=== PATIENT | female | born 1970 | race African-American/Black ===

== ENCOUNTER 2017-04-04 22:55 | Inpatient (IN) | payer OTHER ==
[2017-04-05] MEDS: ONDANSETRON 4 MG INJ IV ×4 (00:14→08:26)
[2017-04-05] MEDS: DEXAMETHASONE 10 MG/ML 1 ML INJ IV (00:14)
[2017-04-05] MEDS: KETOROLAC 15 MG INJ IV (00:14)
[2017-04-05] MEDS: HYDROmorphONE 1 MG/ML SYG IV ×4 (00:15→22:42)
[2017-04-05] MEDS: SOD CHLORIDE 0.9% 500 ML IV (00:15)
[2017-04-05] MEDS: DIAZEPAM 5 MG/ML SYG IV (00:15)
[2017-04-05 01:09] LABS: ADD MAN DIFF? NO
[2017-04-05 01:12] LABS: BASOPHIL # 0.1 10^3/ul (0.0-0.1); BASOPHILS % 1.1 % (0.0-2.0); EOSINOPHILS # 0.1 10^3/ul (0.0-0.5); EOSINOPHILS % 1.8 % (0.0-7.0); HEMATOCRIT 39.8 % (37.0-47.0); HEMOGLOBIN 12.9 g/dl (12.0-16.0); LYMPHOCYTES # 2.6 10^3/ul (0.8-2.9); MEAN CORPUSCULAR HGB CONC 32.4 g/dl (32.0-37.0); MEAN CORPUSCULAR VOLUME 86.3 fl (82.0-101.0); MEAN PLATELET VOLUME 11.1 fl (7.4-10.4); MONOCYTE # 0.5 10^3/ul (0.3-0.9); MONOCYTES % 8.5 % (0.0-11.0); NEUTROPHIL # 2.4 10^3/ul (1.6-7.5); NEUTROPHILS % 42.4 % (39.0-77.0); PLATELET COUNT 316 10^3/UL (140-415); RED BLOOD COUNT 4.61 10^6/ul (4.20-5.40); RED CELL DISTRIBUTION WIDTH 12.1 % (11.5-14.5)
[2017-04-05 01:12] LABS: WHITE BLOOD COUNT 5.6 10^3/ul (4.8-10.8)
[2017-04-05 01:19] LABS: ANION GAP 13 (8-16); BLOOD UREA NITROGEN 13 mg/dl (7-20); CALCIUM 9.7 mg/dl (8.4-10.2); CARBON DIOXIDE 27 mmol/L (21-31); CHLORIDE 104 mmol/L (97-110); CREATININE 0.68 mg/dl (0.44-1.00); GLUCOSE 102 mg/dl (70-220); SODIUM 140 mmol/L (135-144)
[2017-04-05] MEDS ORDERED: ACETAMINOPHEN 325 MG TAB PO ×2 (01:30→02:30)
[2017-04-05] MEDS ORDERED: HYDROCODONE/APAP (5/325) TAB PO (02:30)
[2017-04-05] MEDS ORDERED: DOCUSATE SODIUM 100 MG CAP PO (02:30)
[2017-04-05] MEDS ORDERED: BISACODYL (EC) 5 MG TAB PO (02:30)
[2017-04-05] MEDS ORDERED: HYDROmorphONE 0.5 MG/0.5 ML SYG IV (02:30)
[2017-04-05] MEDS ORDERED: NACL 0.9% 3 ML SYG IV (02:30)
[2017-04-05 05:51] LABS: INR 0.88; PT RATIO 0.9
[2017-04-05 05:52] LABS: PARTIAL THROMBOPLASTIN TIME 27.5 Sec (25.0-35.0)
[2017-04-05] MEDS: DEXAMETHASONE 4 MG/ML 1 ML INJ IV ×3 (09:50→18:23)
[2017-04-05] MEDS: METOCLOPRAMIDE 10 MG INJ IV (13:14)
[2017-04-05] MEDS: SOD CHLORIDE 0.9% 1,000 ML IV (13:59)
[2017-04-05] MEDS: KETOROLAC 30 MG INJ IV (19:51)
[2017-04-06] MEDS: DEXAMETHASONE 4 MG/ML 1 ML INJ IV ×4 (00:10→18:33)
[2017-04-06] MEDS: ONDANSETRON 4 MG INJ IV (00:37)
[2017-04-06] MEDS: DIPHENHYDRAMINE 50 MG CAP PO ×3 (00:47→13:36)
[2017-04-06] MEDS: PANTOPRAZOLE (EC) 40 MG TAB PO (05:40)
[2017-04-06 06:10] LABS: ADD MAN DIFF? NO
[2017-04-06 06:12] LABS: HEMATOCRIT 36.8 % (37.0-47.0); HEMOGLOBIN 11.8 g/dl (12.0-16.0); LYMPHOCYTES # 0.9 10^3/ul (0.8-2.9); LYMPHOCYTES % 10.3 % (15.0-51.0); MEAN CORPUSCULAR HEMOGLOBIN 28.1 pg (29.0-33.0); MEAN CORPUSCULAR HGB CONC 32.1 g/dl (32.0-37.0); MEAN CORPUSCULAR VOLUME 87.6 fl (82.0-101.0); MEAN PLATELET VOLUME 11.1 fl (7.4-10.4); MONOCYTE # 0.3 10^3/ul (0.3-0.9); MONOCYTES % 3.3 % (0.0-11.0); NEUTROPHIL # 7.2 10^3/ul (1.6-7.5); NEUTROPHILS % 85.9 % (39.0-77.0); PLATELET COUNT 292 10^3/UL (140-415); RED CELL DISTRIBUTION WIDTH 12.4 % (11.5-14.5)
[2017-04-06 06:12] LABS: WHITE BLOOD COUNT 8.4 10^3/ul (4.8-10.8)
[2017-04-06 06:48] LABS: ALANINE AMINOTRANSFERASE 48 IU/L (13-69); ALKALINE PHOSPHATASE 130 IU/L (42-121); ANION GAP 14 (8-16); ASPARTATE AMINO TRANSFERASE 25 IU/L (15-46); BILIRUBIN,INDIRECT 0.1 mg/dl (0-1.1); BILIRUBIN,TOTAL 0.1 mg/dl (0.2-1.3); BLOOD UREA NITROGEN 17 mg/dl (7-20); CALCIUM 9.8 mg/dl (8.4-10.2); CARBON DIOXIDE 28 mmol/L (21-31); CHLORIDE 104 mmol/L (97-110); GLUCOSE 130 mg/dl (70-220); POTASSIUM 4.6 mmol/L (3.5-5.1); SODIUM 141 mmol/L (135-144)
[2017-04-06 06:49] LABS: MAGNESIUM 1.9 mg/dl (1.7-2.5)
[2017-04-06 06:49] LABS: PHOSPHORUS 3.8 mg/dl (2.5-4.9)
[2017-04-06] MEDS: SERTRALINE 50 MG TAB PO (08:54)
[2017-04-06] MEDS: DOCUSATE SODIUM 250 MG CAP PO (08:54)
[2017-04-06] MEDS: HYDROmorphONE 1 MG/ML SYG IV (12:19)
[2017-04-06] MEDS: traMADol 50 MG TAB PO ×2 (15:18→20:50)
[2017-04-06] MEDS: ACETAMINOPHEN 1000MG/100ML IV 100 ML IVPB ×2 (15:19→20:49)
[2017-04-06] MEDS: HYDROmorphONE 2 MG TAB PO (22:09)
[2017-04-07] MEDS: DEXAMETHASONE 4 MG/ML 1 ML INJ IV ×5 (00:10→23:03)
[2017-04-07] MEDS: HYDROmorphONE 1 MG/ML SYG IV ×3 (01:15→20:35)
[2017-04-07] MEDS: ACETAMINOPHEN 1000MG/100ML IV 100 ML IVPB ×4 (02:13→19:41)
[2017-04-07] MEDS: traMADol 50 MG TAB PO ×4 (02:14→19:41)
[2017-04-07 05:23] LABS: WHITE BLOOD COUNT 9.9 10^3/ul (4.8-10.8)
[2017-04-07 05:23] LABS: ADD MAN DIFF? NO; BASOPHILS % 0.1 % (0.0-2.0); HEMATOCRIT 38.7 % (37.0-47.0); HEMOGLOBIN 12.2 g/dl (12.0-16.0); LYMPHOCYTES % 10.2 % (15.0-51.0); MEAN CORPUSCULAR HEMOGLOBIN 27.5 pg (29.0-33.0); MEAN CORPUSCULAR HGB CONC 31.5 g/dl (32.0-37.0); MEAN CORPUSCULAR VOLUME 87.2 fl (82.0-101.0); MEAN PLATELET VOLUME 11.1 fl (7.4-10.4); MONOCYTE # 0.3 10^3/ul (0.3-0.9); MONOCYTES % 2.6 % (0.0-11.0); NEUTROPHIL # 8.6 10^3/ul (1.6-7.5); NEUTROPHILS % 86.5 % (39.0-77.0); PLATELET COUNT 305 10^3/UL (140-415); RED BLOOD COUNT 4.44 10^6/ul (4.20-5.40)
[2017-04-07 05:48] LABS: ANION GAP 16 (8-16); BLOOD UREA NITROGEN 16 mg/dl (7-20); CALCIUM 9.1 mg/dl (8.4-10.2); CARBON DIOXIDE 29 mmol/L (21-31); CHLORIDE 102 mmol/L (97-110); CREATININE 0.66 mg/dl (0.44-1.00); GLUCOSE 128 mg/dl (70-220); POTASSIUM 4.5 mmol/L (3.5-5.1); SODIUM 142 mmol/L (135-144)
[2017-04-07] MEDS: PANTOPRAZOLE (EC) 40 MG TAB PO (05:58)
[2017-04-07] MEDS: SERTRALINE 50 MG TAB PO (08:28)
[2017-04-07] MEDS: DOCUSATE SODIUM 250 MG CAP PO (08:30)
[2017-04-07] MEDS: DIPHENHYDRAMINE 50 MG CAP PO (19:05)
[2017-04-07] MEDS: HYDROCORTISONE 2.5% 28.35 GM OINT TOP (20:48)
[2017-04-08] MEDS: ACETAMINOPHEN 1000MG/100ML IV 100 ML IVPB ×4 (02:38→22:00)
[2017-04-08] MEDS: DIPHENHYDRAMINE 50 MG CAP PO ×2 (02:39→08:51)
[2017-04-08] MEDS: traMADol 50 MG TAB PO ×4 (02:39→22:01)
[2017-04-08] MEDS: HYDROmorphONE 1 MG/ML SYG IV ×3 (04:30→19:48)
[2017-04-08] MEDS: PANTOPRAZOLE (EC) 40 MG TAB PO (05:09)
[2017-04-08] MEDS: DEXAMETHASONE 4 MG/ML 1 ML INJ IV ×4 (05:09→23:57)
[2017-04-08 05:17] LABS: ADD MAN DIFF? NO
[2017-04-08 05:19] LABS: WHITE BLOOD COUNT 10.3 10^3/ul (4.8-10.8)
[2017-04-08 05:19] LABS: BASOPHILS % 0.1 % (0.0-2.0); HEMATOCRIT 36.1 % (37.0-47.0); HEMOGLOBIN 11.7 g/dl (12.0-16.0); LYMPHOCYTES # 3.3 10^3/ul (0.8-2.9); LYMPHOCYTES % 31.5 % (15.0-51.0); MEAN CORPUSCULAR HEMOGLOBIN 28.6 pg (29.0-33.0); MEAN CORPUSCULAR HGB CONC 32.4 g/dl (32.0-37.0); MEAN CORPUSCULAR VOLUME 88.3 fl (82.0-101.0); MEAN PLATELET VOLUME 10.9 fl (7.4-10.4); MONOCYTE # 0.9 10^3/ul (0.3-0.9); MONOCYTES % 8.9 % (0.0-11.0); NEUTROPHIL # 6.1 10^3/ul (1.6-7.5); NEUTROPHILS % 58.7 % (39.0-77.0); PLATELET COUNT 282 10^3/UL (140-415); RED BLOOD COUNT 4.09 10^6/ul (4.20-5.40); RED CELL DISTRIBUTION WIDTH 12.1 % (11.5-14.5)
[2017-04-08 05:54] LABS: ANION GAP 11 (8-16); BLOOD UREA NITROGEN 18 mg/dl (7-20); CALCIUM 8.6 mg/dl (8.4-10.2); CARBON DIOXIDE 30 mmol/L (21-31); CHLORIDE 102 mmol/L (97-110); CREATININE 0.71 mg/dl (0.44-1.00); GLUCOSE 91 mg/dl (70-220); POTASSIUM 3.9 mmol/L (3.5-5.1); SODIUM 139 mmol/L (135-144)
[2017-04-08] MEDS: SERTRALINE 50 MG TAB PO (08:45)
[2017-04-08] MEDS: HYDROCORTISONE 2.5% 28.35 GM OINT TOP ×2 (08:46→22:01)
[2017-04-08] MEDS: DOCUSATE SODIUM 250 MG CAP PO (08:53)
[2017-04-08] MEDS: DIPHENHYDRAMINE 50 MG INJ IV (14:03)
[2017-04-09] MEDS: HYDROmorphONE 1 MG/ML SYG IV ×2 (02:52→14:45)
[2017-04-09] MEDS: traMADol 50 MG TAB PO ×3 (02:53→14:44)
[2017-04-09] MEDS: ACETAMINOPHEN 1000MG/100ML IV 100 ML IVPB ×3 (02:53→14:44)
[2017-04-09] MEDS: PANTOPRAZOLE (EC) 40 MG TAB PO (05:32)
[2017-04-09] MEDS: DEXAMETHASONE 4 MG/ML 1 ML INJ IV ×3 (05:33→18:00)
[2017-04-09 05:40] LABS: ADD MAN DIFF? NO
[2017-04-09 05:42] LABS: BASOPHILS % 0.1 % (0.0-2.0); EOSINOPHILS % 0.4 % (0.0-7.0); LYMPHOCYTES # 3.7 10^3/ul (0.8-2.9); LYMPHOCYTES % 46.8 % (15.0-51.0); MEAN CORPUSCULAR HGB CONC 32.4 g/dl (32.0-37.0); MEAN CORPUSCULAR VOLUME 86.4 fl (82.0-101.0); MEAN PLATELET VOLUME 10.8 fl (7.4-10.4); MONOCYTE # 0.6 10^3/ul (0.3-0.9); MONOCYTES % 7.1 % (0.0-11.0); NEUTROPHIL # 3.6 10^3/ul (1.6-7.5); NEUTROPHILS % 45.2 % (39.0-77.0); PLATELET COUNT 255 10^3/UL (140-415); RED BLOOD COUNT 4.28 10^6/ul (4.20-5.40); RED CELL DISTRIBUTION WIDTH 12.2 % (11.5-14.5)
[2017-04-09 06:19] LABS: ANION GAP 13 (8-16); BLOOD UREA NITROGEN 18 mg/dl (7-20); CALCIUM 8.6 mg/dl (8.4-10.2); CARBON DIOXIDE 30 mmol/L (21-31); CHLORIDE 101 mmol/L (97-110); CREATININE 0.68 mg/dl (0.44-1.00); GLUCOSE 80 mg/dl (70-220); POTASSIUM 3.7 mmol/L (3.5-5.1); SODIUM 140 mmol/L (135-144)
[2017-04-09] MEDS: DOCUSATE SODIUM 250 MG CAP PO ×2 (09:00→09:22)
[2017-04-09] MEDS: HYDROCORTISONE 2.5% 28.35 GM OINT TOP (09:22)
[2017-04-09] MEDS: SERTRALINE 50 MG TAB PO (09:22)
[2017-04-09] MEDS: METHOCARBAMOL 500 MG TAB PO (16:07)
== END 2017-04-09 19:30 | disposition home or self-care (01) | DRG 552 ==
LOC: E/R 22:55 → MS1 04-05 01:15
DX: M51.16 Intervertebral disc disorders with radiculopathy, lumbar region (principal); Z68.41 Body mass index [BMI] 40.0-44.9, adult; F31.9 Bipolar disorder, unspecified; G89.4 Chronic pain syndrome; E66.9 Obesity, unspecified
CPT/HCPCS: 72158; 80048; 80053; 83735; 84100; 85025; 85610; 85730; 96374; 96375; 96376; 97162; 99285-25

== ENCOUNTER 2017-04-25 23:03 | Emergency (ER) | payer SELFPAY, OTHER | END 2017-04-26 02:51 | disposition left against medical advice (07) | LOC: FTE 23:03 → E/R 04-26 02:51 | DX: Z53.21 Procedure and treatment not carried out due to patient leaving prior to being seen by health care provider (principal) ==

== ENCOUNTER 2017-05-23 17:41 | Emergency (ER) | payer OTHER ==
[2017-05-23] MEDS: METHYLPREDNISOLONE 125 MG INJ IV (21:17)
[2017-05-23] MEDS: KETOROLAC 30 MG INJ IV (21:17)
[2017-05-23] MEDS: FAMOTIDINE 20 MG INJ IV (21:18)
[2017-05-23] MEDS: LACTATED RINGER'S 500 ML IV (21:18)
[2017-05-23] MEDS: LORAZEPAM 2 MG INJ IV (21:18)
[2017-05-23 21:29] LABS: URINE BLOOD (Dip) POC Trace-intact (NEGATIVE); URINE GLUCOSE (Dip) POC Negative (NEGATIVE); URINE KETONES (Dip) POC Negative (NEGATIVE); URINE LEUKOCYTE EST (Dip) POC Negative (NEGATIVE); URINE NITRITE (Dip) POC Negative (NEGATIVE); URINE TOTAL PROTEIN POC Negative (NEGATIVE)
[2017-05-23] MEDS: ONDANSETRON 4 MG INJ IV (21:47)
[2017-05-23] MEDS: HYDROmorphONE 1 MG/ML SYG IM (21:49)
[2017-05-23 21:52] LABS: ADD MAN DIFF? NO
[2017-05-23 21:55] LABS: BASOPHILS % 0.7 % (0.0-2.0); EOSINOPHILS # 0.1 10^3/ul (0.0-0.5); EOSINOPHILS % 2.9 % (0.0-7.0); HEMATOCRIT 40.2 % (37.0-47.0); HEMOGLOBIN 12.9 g/dl (12.0-16.0); LYMPHOCYTES # 1.6 10^3/ul (0.8-2.9); LYMPHOCYTES % 38.4 % (15.0-51.0); MEAN CORPUSCULAR HEMOGLOBIN 28.1 pg (29.0-33.0); MEAN CORPUSCULAR HGB CONC 32.1 g/dl (32.0-37.0); MEAN CORPUSCULAR VOLUME 87.6 fl (82.0-101.0); MONOCYTE # 0.5 10^3/ul (0.3-0.9); MONOCYTES % 11.8 % (0.0-11.0); NEUTROPHIL # 1.9 10^3/ul (1.6-7.5); PLATELET COUNT 261 10^3/UL (140-415); RED BLOOD COUNT 4.59 10^6/ul (4.20-5.40); RED CELL DISTRIBUTION WIDTH 12.4 % (11.5-14.5)
[2017-05-23 21:55] LABS: WHITE BLOOD COUNT 4.1 10^3/ul (4.8-10.8)
[2017-05-23 22:21] LABS: ALANINE AMINOTRANSFERASE 100 IU/L (13-69); ALBUMIN 4.3 g/dl (3.3-4.9); ALBUMIN/GLOBULIN RATIO 1.13; ALKALINE PHOSPHATASE 161 IU/L (42-121); ANION GAP 15 (8-16); ASPARTATE AMINO TRANSFERASE 77 IU/L (15-46); BILIRUBIN,INDIRECT 0.1 mg/dl (0-1.1); BILIRUBIN,TOTAL 0.1 mg/dl (0.2-1.3); BLOOD UREA NITROGEN 13 mg/dl (7-20); CALCIUM 9.5 mg/dl (8.4-10.2); CARBON DIOXIDE 29 mmol/L (21-31); CHLORIDE 105 mmol/L (97-110); CREATININE 0.66 mg/dl (0.44-1.00); GLUCOSE 89 mg/dl (70-220); LIPASE 103 U/L (23-300); POTASSIUM 4.1 mmol/L (3.5-5.1); SODIUM 145 mmol/L (135-144); TOTAL PROTEIN 8.1 g/dl (6.1-8.1)
[2017-05-23] MEDS: DIPHENHYDRAMINE 50 MG INJ IV (22:32)
[2017-05-24] MEDS: OXYCODONE/ACETAMINOPHEN (5/325) TAB PO (00:07)
[2017-05-24] MEDS: traMADol 50 MG TAB PO (00:07)
== END 2017-05-24 00:20 | disposition home or self-care (01) ==
LOC: FTE 05-24 00:20
DX: M54.16 Radiculopathy, lumbar region (principal)
CPT/HCPCS: 36415; 72131; 80053; 81003; 83690; 85025; 87086; 96372; 96374; 96375; 99285-25

== ENCOUNTER 2017-06-26 14:45 | Inpatient (IN) | payer OTHER ==
[2017-06-26 16:16] LABS: ADD MAN DIFF? NO
[2017-06-26 16:21] LABS: WHITE BLOOD COUNT 5.7 10^3/ul (4.8-10.8)
[2017-06-26 16:21] LABS: BASOPHIL # 0.1 10^3/ul (0.0-0.1); BASOPHILS % 0.9 % (0.0-2.0); EOSINOPHILS # 0.2 10^3/ul (0.0-0.5); EOSINOPHILS % 4.2 % (0.0-7.0); HEMATOCRIT 35.5 % (37.0-47.0); HEMOGLOBIN 11.9 g/dl (12.0-16.0); LYMPHOCYTES # 1.2 10^3/ul (0.8-2.9); LYMPHOCYTES % 21.4 % (15.0-51.0); MEAN CORPUSCULAR HEMOGLOBIN 28.3 pg (29.0-33.0); MEAN CORPUSCULAR HGB CONC 33.5 g/dl (32.0-37.0); MEAN CORPUSCULAR VOLUME 84.3 fl (82.0-101.0); MONOCYTE # 0.6 10^3/ul (0.3-0.9); MONOCYTES % 10.1 % (0.0-11.0); NEUTROPHIL # 3.6 10^3/ul (1.6-7.5); NEUTROPHILS % 63.2 % (39.0-77.0); PLATELET COUNT 283 10^3/UL (140-415); RED BLOOD COUNT 4.21 10^6/ul (4.20-5.40); RED CELL DISTRIBUTION WIDTH 11.9 % (11.5-14.5)
[2017-06-26] MEDS: CEFEPIME 2GM/50 ML (PMX) 50 ML IVPB (16:25)
[2017-06-26] MEDS: SODIUM CHLORIDE 0.9% 1L BAG IV* (16:28)
[2017-06-26 16:29] LABS: ADD UMIC YES; UR ASCORBIC ACID NEGATIVE (NEGATIVE); UR BILIRUBIN (Dip) NEGATIVE (NEGATIVE); UR BLOOD (Dip) NEGATIVE (NEGATIVE); UR CLARITY CLOUDY (CLEAR); UR COLOR AMBER (YELLOW); UR GLUCOSE (Dip) NEGATIVE (NEGATIVE); UR KETONES (Dip) TRACE mg/dL (NEGATIVE); UR LEUKOCYTE ESTERASE (Dip) NEGATIVE Leu/ul (NEGATIVE); UR MUCUS MANY /HPF (NONE SEEN); UR NITRITE (Dip) NEGATIVE (NEGATIVE); UR RBC 5 /HPF (0-5); UR SPECIFIC GRAVITY (Dip) 1.024 (1.003-1.030); UR SQUAMOUS EPITHELIAL CELL MODERATE /HPF (FEW); UR TOTAL PROTEIN (Dip) 1+ mg/dl (NEGATIVE); UR UROBILINOGEN (Dip) NEGATIVE (NEGATIVE); UR WBC 8 /HPF (0-5)
[2017-06-26] MEDS ORDERED: ONDANSETRON 4 MG INJ (16:35)
[2017-06-26 16:40] LABS: ALANINE AMINOTRANSFERASE 22 IU/L (13-69); ALKALINE PHOSPHATASE 86 IU/L (42-121); ANION GAP 18 (8-16); ASPARTATE AMINO TRANSFERASE 30 IU/L (15-46); BILIRUBIN,INDIRECT 0.8 mg/dl (0-1.1); BILIRUBIN,TOTAL 0.8 mg/dl (0.2-1.3); BLOOD UREA NITROGEN 9 mg/dl (7-20); CALCIUM 9.6 mg/dl (8.4-10.2); CARBON DIOXIDE 26 mmol/L (21-31); CHLORIDE 98 mmol/L (97-110); CREATININE 0.69 mg/dl (0.44-1.00); GLUCOSE 111 mg/dl (70-220); POTASSIUM 4.1 mmol/L (3.5-5.1); SODIUM 138 mmol/L (135-144)
[2017-06-26 16:41] LABS: INR 0.99; PARTIAL THROMBOPLASTIN TIME 29.2 Sec (25.0-35.0); PROTIME 13.2 Sec (11.9-14.9)
[2017-06-26] MEDS: ONDANSETRON 4 MG INJ IV (16:52)
[2017-06-26 16:53] LABS: TROPONIN-I < 0.012 ng/ml (0.00-0.12)
[2017-06-26] MEDS: VANCOMYCIN 1 GM (PMX) 250 ML IVPB (17:01)
[2017-06-26 17:25] LABS: ERYTHROCYTE SEDIMENTATION RATE 38 mm/Hr (0-20)
[2017-06-26 18:42] LABS: LACTIC ACID 1.4 mmol/L (0.5-2.0)
[2017-06-26] MEDS: KETOROLAC 15 MG INJ IV (20:14)
[2017-06-26] MEDS ORDERED: BISACODYL 10 MG SUPP PR (20:30)
[2017-06-26] MEDS ORDERED: NACL 0.9% 3 ML SYG IV (20:30)
[2017-06-26] MEDS ORDERED: ACETAMINOPHEN 325 MG TAB PO (20:30)
[2017-06-26] MEDS ORDERED: ONDANSETRON 4 MG INJ IV (20:30)
[2017-06-26] MEDS ORDERED: DOCUSATE SODIUM 100 MG CAP PO (20:30)
[2017-06-26] MEDS: SOD CHLORIDE 0.9% 1,000 ML IV (22:28)
[2017-06-26] MEDS: morphine 2 MG INJ IV (22:35)
[2017-06-26 22:50] LABS: URIC ACID 5.9 mg/dl (3.1-7.9)
[2017-06-26 22:51] LABS: LACTIC ACID 0.8 mmol/L (0.5-2.0)
[2017-06-26 22:55] LABS: RHEUMATOID FACTOR NEGATIVE (NEGATIVE)
[2017-06-27] MEDS: ACETAMINOPHEN 325 MG TAB PO ×2 (02:28→14:21)
[2017-06-27] MEDS: FLUTICASONE 0.05% 16 GM NAS SPRAY NASAL ×3 (02:29→20:46)
[2017-06-27] MEDS: morphine 2 MG INJ IV ×3 (03:27→22:11)
[2017-06-27] MEDS ORDERED: VANCOMYCIN IV PER PHARMACY XX (04:30)
[2017-06-27] MEDS: LEVOFLOXACIN 750MG/D5W (PMX) 150 ML IVPB (05:11)
[2017-06-27 06:17] LABS: ADD MAN DIFF? NO
[2017-06-27 06:23] LABS: WHITE BLOOD COUNT 2.9 10^3/ul (4.8-10.8)
[2017-06-27 06:23] LABS: EOSINOPHILS # 0.2 10^3/ul (0.0-0.5); EOSINOPHILS % 6.5 % (0.0-7.0); HEMATOCRIT 30.6 % (37.0-47.0); LYMPHOCYTES % 33.2 % (15.0-51.0); MEAN CORPUSCULAR HEMOGLOBIN 27.9 pg (29.0-33.0); MEAN CORPUSCULAR HGB CONC 32.7 g/dl (32.0-37.0); MEAN CORPUSCULAR VOLUME 85.2 fl (82.0-101.0); MEAN PLATELET VOLUME 10.7 fl (7.4-10.4); MONOCYTE # 0.4 10^3/ul (0.3-0.9); MONOCYTES % 13.4 % (0.0-11.0); NEUTROPHIL # 1.3 10^3/ul (1.6-7.5); NEUTROPHILS % 45.9 % (39.0-77.0); PLATELET COUNT 211 10^3/UL (140-415); RED BLOOD COUNT 3.59 10^6/ul (4.20-5.40); RED CELL DISTRIBUTION WIDTH 11.9 % (11.5-14.5)
[2017-06-27] MEDS: VANCOMYCIN 1.5 GM in SOD CHLORIDE 0.9% 250 ML IVPB (06:42)
[2017-06-27 06:56] LABS: ALANINE AMINOTRANSFERASE 30 IU/L (13-69); ALBUMIN 3.2 g/dl (3.3-4.9); ALBUMIN/GLOBULIN RATIO 1.03; ALKALINE PHOSPHATASE 67 IU/L (42-121); ANION GAP 12 (8-16); ASPARTATE AMINO TRANSFERASE 26 IU/L (15-46); BILIRUBIN,INDIRECT 0.6 mg/dl (0-1.1); BILIRUBIN,TOTAL 0.6 mg/dl (0.2-1.3); BLOOD UREA NITROGEN 6 mg/dl (7-20); CALCIUM 8.4 mg/dl (8.4-10.2); CARBON DIOXIDE 26 mmol/L (21-31); CHLORIDE 108 mmol/L (97-110); CHOL/HDL RATIO 5.5 RATIO; CHOLESTEROL 138 mg/dl (100-200); GLUCOSE 97 mg/dl (70-220); HDL CHOLESTEROL 25 mg/dl (34-88); LDL CHOLESTEROL,CALCULATED 100 mg/dl; MAGNESIUM 1.8 mg/dl (1.7-2.5); POTASSIUM 3.6 mmol/L (3.5-5.1); SODIUM 142 mmol/L (135-144); TOTAL PROTEIN 6.3 g/dl (6.1-8.1); TRIGLYCERIDES 66 mg/dl (0-149)
[2017-06-27] MEDS: ONDANSETRON 4 MG INJ IV (06:56)
[2017-06-27 07:03] LABS: HEMOGLOBIN A1C 5.1 % (0-5.9)
[2017-06-27] MEDS ORDERED: METOCLOPRAMIDE 10 MG INJ IV (10:30)
[2017-06-27 11:25] LABS: ADD MAN DIFF? NO
[2017-06-27 11:30] LABS: BASOPHILS % 0.9 % (0.0-2.0); EOSINOPHILS # 0.2 10^3/ul (0.0-0.5); EOSINOPHILS % 4.5 % (0.0-7.0); HEMATOCRIT 31.6 % (37.0-47.0); HEMOGLOBIN 10.3 g/dl (12.0-16.0); LYMPHOCYTES # 0.6 10^3/ul (0.8-2.9); LYMPHOCYTES % 19.3 % (15.0-51.0); MEAN CORPUSCULAR HEMOGLOBIN 27.8 pg (29.0-33.0); MEAN CORPUSCULAR HGB CONC 32.6 g/dl (32.0-37.0); MEAN CORPUSCULAR VOLUME 85.4 fl (82.0-101.0); MEAN PLATELET VOLUME 10.3 fl (7.4-10.4); MONOCYTE # 0.3 10^3/ul (0.3-0.9); MONOCYTES % 8.5 % (0.0-11.0); NEUTROPHIL # 2.2 10^3/ul (1.6-7.5); NEUTROPHILS % 66.5 % (39.0-77.0); PLATELET COUNT 222 10^3/UL (140-415); RED CELL DISTRIBUTION WIDTH 11.9 % (11.5-14.5)
[2017-06-27 11:30] LABS: WHITE BLOOD COUNT 3.3 10^3/ul (4.8-10.8)
[2017-06-27 16:16] LABS: B-TYPE NATRIURETIC PEPTIDE 150 PG/ML (0-125)
[2017-06-27] MEDS: SOD CHLORIDE 0.9% 500 ML IV (22:02)
[2017-06-28 04:57] LABS: ADD MAN DIFF? NO
[2017-06-28 04:59] LABS: BASOPHILS % 0.9 % (0.0-2.0); EOSINOPHILS # 0.2 10^3/ul (0.0-0.5); EOSINOPHILS % 6.3 % (0.0-7.0); HEMOGLOBIN 10.1 g/dl (12.0-16.0); LYMPHOCYTES % 31.9 % (15.0-51.0); MEAN CORPUSCULAR HEMOGLOBIN 27.4 pg (29.0-33.0); MEAN CORPUSCULAR HGB CONC 32.6 g/dl (32.0-37.0); MEAN CORPUSCULAR VOLUME 84.2 fl (82.0-101.0); MEAN PLATELET VOLUME 10.6 fl (7.4-10.4); MONOCYTE # 0.4 10^3/ul (0.3-0.9); MONOCYTES % 11.3 % (0.0-11.0); NEUTROPHIL # 1.6 10^3/ul (1.6-7.5); NEUTROPHILS % 49.3 % (39.0-77.0); PLATELET COUNT 238 10^3/UL (140-415); RED BLOOD COUNT 3.68 10^6/ul (4.20-5.40); RED CELL DISTRIBUTION WIDTH 11.7 % (11.5-14.5)
[2017-06-28 04:59] LABS: WHITE BLOOD COUNT 3.2 10^3/ul (4.8-10.8)
[2017-06-28 05:35] LABS: ALANINE AMINOTRANSFERASE 29 IU/L (13-69); ALBUMIN 3.5 g/dl (3.3-4.9); ALBUMIN/GLOBULIN RATIO 1.02; ALKALINE PHOSPHATASE 67 IU/L (42-121); ANION GAP 10 (8-16); ASPARTATE AMINO TRANSFERASE 23 IU/L (15-46); BILIRUBIN,INDIRECT 0.3 mg/dl (0-1.1); BILIRUBIN,TOTAL 0.3 mg/dl (0.2-1.3); BLOOD UREA NITROGEN 4 mg/dl (7-20); CALCIUM 8.7 mg/dl (8.4-10.2); CARBON DIOXIDE 27 mmol/L (21-31); CHLORIDE 104 mmol/L (97-110); CREATININE 0.66 mg/dl (0.44-1.00); GLUCOSE 100 mg/dl (70-220); MAGNESIUM 1.7 mg/dl (1.7-2.5); PHOSPHORUS 3.2 mg/dl (2.5-4.9); POTASSIUM 3.6 mmol/L (3.5-5.1); SODIUM 137 mmol/L (135-144); TOTAL PROTEIN 6.9 g/dl (6.1-8.1)
[2017-06-28] MEDS ORDERED: NON-FORMULARY/PATIENT OWN MED (Lurasidone Hcl (Latuda) 80 MG) PO (09:00)
[2017-06-28] MEDS: ACETAMINOPHEN 325 MG TAB PO (09:09)
[2017-06-28] MEDS: FLUTICASONE 0.05% 16 GM NAS SPRAY NASAL (09:09)
[2017-06-30 13:01] LABS: ANA SCREEN NEGATIVE (NEGATIVE)
== END 2017-06-28 17:15 | disposition home or self-care (01) | DRG 864 ==
LOC: PP2 21:31 → E/R 14:45 → PP2 20:04
DX: R50.9 Fever, unspecified (principal); M25.439 Effusion, unspecified wrist; M25.473 Effusion, unspecified ankle; R80.9 Proteinuria, unspecified; J32.9 Chronic sinusitis, unspecified; F31.9 Bipolar disorder, unspecified; G89.29 Other chronic pain; Z98.890 Other specified postprocedural states; Z87.39 Personal history of other diseases of the musculoskeletal system and connective tissue
CPT/HCPCS: 36415; 71045; 80053; 80061; 81001; 83036; 83605; 83735; 83880; 84100; 84443; 84484; 84560; 85025; 85610; 85651; 85730; 86038; 86430; 87040; 87086; 87400; 93005; 93306; 93970; 96374; 96375; 99285-25

== ENCOUNTER 2017-07-13 20:32 | Inpatient (IN) | payer OTHER ==
[2017-07-14 00:29] LABS: ADD MAN DIFF? NO
[2017-07-14] MEDS: ONDANSETRON 4 MG INJ IV ×3 (00:30→15:37)
[2017-07-14] MEDS ORDERED: ONDANSETRON 4 MG INJ (00:32)
[2017-07-14 00:34] LABS: EOSINOPHILS # 0.2 10^3/ul (0.0-0.5); HEMATOCRIT 38.2 % (37.0-47.0); HEMOGLOBIN 12.5 g/dl (12.0-16.0); LYMPHOCYTES # 1.2 10^3/ul (0.8-2.9); LYMPHOCYTES % 29.9 % (15.0-51.0); MEAN CORPUSCULAR HEMOGLOBIN 28.1 pg (29.0-33.0); MEAN CORPUSCULAR HGB CONC 32.7 g/dl (32.0-37.0); MEAN CORPUSCULAR VOLUME 85.8 fl (82.0-101.0); MEAN PLATELET VOLUME 9.9 fl (7.4-10.4); MONOCYTE # 0.5 10^3/ul (0.3-0.9); MONOCYTES % 11.3 % (0.0-11.0); NEUTROPHIL # 2.1 10^3/ul (1.6-7.5); NEUTROPHILS % 52.8 % (39.0-77.0); PLATELET COUNT 311 10^3/UL (140-415); RED BLOOD COUNT 4.45 10^6/ul (4.20-5.40); RED CELL DISTRIBUTION WIDTH 12.2 % (11.5-14.5)
[2017-07-14 00:49] LABS: ADD UMIC YES; UR ASCORBIC ACID NEGATIVE (NEGATIVE); UR BILIRUBIN (Dip) NEGATIVE (NEGATIVE); UR BLOOD (Dip) 1+ mg/dL (NEGATIVE); UR CLARITY SLIGHTLY CLOUDY (CLEAR); UR COLOR AMBER (YELLOW); UR GLUCOSE (Dip) NEGATIVE (NEGATIVE); UR KETONES (Dip) TRACE mg/dL (NEGATIVE); UR LEUKOCYTE ESTERASE (Dip) NEGATIVE Leu/ul (NEGATIVE); UR MUCUS MANY /HPF (NONE SEEN); UR NITRITE (Dip) NEGATIVE (NEGATIVE); UR RBC 10 /HPF (0-5); UR SPECIFIC GRAVITY (Dip) 1.023 (1.003-1.030); UR SQUAMOUS EPITHELIAL CELL FEW /HPF (FEW); UR TOTAL PROTEIN (Dip) 1+ mg/dl (NEGATIVE); UR UROBILINOGEN (Dip) NEGATIVE (NEGATIVE); UR WBC 5 /HPF (0-5)
[2017-07-14 00:52] LABS: ALANINE AMINOTRANSFERASE 50 IU/L (13-69); ALBUMIN 4.2 g/dl (3.3-4.9); ALBUMIN/GLOBULIN RATIO 1.05; ALKALINE PHOSPHATASE 74 IU/L (42-121); ANION GAP 15 (8-16); ASPARTATE AMINO TRANSFERASE 44 IU/L (15-46); BILIRUBIN,INDIRECT 0.5 mg/dl (0-1.1); BILIRUBIN,TOTAL 0.5 mg/dl (0.2-1.3); BLOOD UREA NITROGEN 8 mg/dl (7-20); CALCIUM 9.9 mg/dl (8.4-10.2); CARBON DIOXIDE 27 mmol/L (21-31); CHLORIDE 102 mmol/L (97-110); CREATININE 0.73 mg/dl (0.44-1.00); GLUCOSE 106 mg/dl (70-220); POTASSIUM 4.1 mmol/L (3.5-5.1); SODIUM 140 mmol/L (135-144); TOTAL PROTEIN 8.2 g/dl (6.1-8.1)
[2017-07-14 00:59] LABS: LACTIC ACID 1.3 mmol/L (0.5-2.0)
[2017-07-14 01:08] LABS: TROPONIN-I < 0.012 ng/ml (0.00-0.12)
[2017-07-14 01:18] LABS: INR 0.96; PROTIME 12.9 Sec (11.9-14.9)
[2017-07-14 01:19] LABS: PARTIAL THROMBOPLASTIN TIME 27.8 Sec (25.0-35.0)
[2017-07-14] MEDS ORDERED: HYDROCODONE/APAP (5/325) TAB PO (05:30)
[2017-07-14] MEDS ORDERED: NITROGLYCERIN (SL) 0.4 MG TAB SL (05:30)
[2017-07-14] MEDS ORDERED: ZOLPIDEM 5 MG TAB PO (05:30)
[2017-07-14] MEDS ORDERED: DOCUSATE SODIUM 100 MG CAP PO (05:30)
[2017-07-14] MEDS: morphine 2 MG INJ IV (06:10)
[2017-07-14 07:03] LABS: TROPONIN-I < 0.012 ng/ml (0.00-0.12)
[2017-07-14] MEDS ORDERED: NON-FORMULARY/PATIENT OWN MED (Lurasidone Hcl (Latuda) 80 MG) PO (09:00)
[2017-07-14 09:45] LABS: LACTIC ACID 1.3 mmol/L (0.5-2.0)
[2017-07-14 13:44] LABS: TROPONIN-I < 0.012 ng/ml (0.00-0.12)
[2017-07-14] MEDS: PROMETHAZINE/CODEINE 5ML CUP PO ×2 (15:37→23:20)
[2017-07-15 07:35] LABS: ADD MAN DIFF? NO
[2017-07-15 07:47] LABS: WHITE BLOOD COUNT 2.9 10^3/ul (4.8-10.8)
[2017-07-15 07:47] LABS: BASOPHILS % 1.4 % (0.0-2.0); EOSINOPHILS # 0.2 10^3/ul (0.0-0.5); EOSINOPHILS % 6.1 % (0.0-7.0); HEMATOCRIT 38.1 % (37.0-47.0); HEMOGLOBIN 12.2 g/dl (12.0-16.0); MEAN CORPUSCULAR HEMOGLOBIN 27.5 pg (29.0-33.0); MEAN PLATELET VOLUME 10.1 fl (7.4-10.4); MONOCYTE # 0.4 10^3/ul (0.3-0.9); MONOCYTES % 12.6 % (0.0-11.0); NEUTROPHIL # 1.3 10^3/ul (1.6-7.5); NEUTROPHILS % 44.2 % (39.0-77.0); PLATELET COUNT 278 10^3/UL (140-415); RED BLOOD COUNT 4.43 10^6/ul (4.20-5.40); RED CELL DISTRIBUTION WIDTH 12.2 % (11.5-14.5)
[2017-07-15 07:55] LABS: HEMOGLOBIN A1C 5.1 % (0-5.9)
[2017-07-15 08:22] LABS: ANION GAP 14 (8-16); BLOOD UREA NITROGEN 6 mg/dl (7-20); CALCIUM 9.4 mg/dl (8.4-10.2); CARBON DIOXIDE 28 mmol/L (21-31); CHLORIDE 101 mmol/L (97-110); CHOLESTEROL 167 mg/dl (100-200); CREATININE 0.78 mg/dl (0.44-1.00); GLUCOSE 97 mg/dl (70-220); HDL CHOLESTEROL 33 mg/dl (34-88); LDL CHOLESTEROL,CALCULATED 117 mg/dl; MAGNESIUM 1.8 mg/dl (1.7-2.5); PHOSPHORUS 3.8 mg/dl (2.5-4.9); SODIUM 139 mmol/L (135-144); TRIGLYCERIDES 83 mg/dl (0-149)
[2017-07-15] MEDS: NACL 0.9% 3 ML SYG IV (08:28)
[2017-07-15] MEDS: ASPIRIN 81 MG TAB PO (08:28)
[2017-07-15] MEDS: [UNRECOGNIZED DRUG - OTHER] XX ×2 (09:30→16:14)
[2017-07-15] MEDS: ACETAMINOPHEN 325 MG TAB PO ×2 (12:31→20:51)
[2017-07-15] MEDS: ONDANSETRON 4 MG INJ IV (15:16)
[2017-07-15] MEDS: morphine 2 MG INJ IV (15:27)
[2017-07-15] MEDS: LIDOCAINE 2% (SDV) 5 ML INJ (16:49)
[2017-07-15] MEDS: PROPOFOL 60 ML (16:49)
[2017-07-16] MEDS: [UNRECOGNIZED DRUG - OTHER] XX ×2 (01:30→09:29)
[2017-07-16] MEDS: ACETAMINOPHEN 325 MG TAB PO ×2 (02:56→11:57)
[2017-07-16] MEDS: DOCUSATE SODIUM 100 MG CAP PO (09:00)
[2017-07-16] MEDS: ASPIRIN 81 MG TAB PO (09:10)
[2017-07-16] MEDS: MAGNESIUM HYDROXIDE 30ML CUP PO (09:10)
== END 2017-07-16 16:15 | disposition home or self-care (01) | DRG 392 ==
LOC: E/R 20:32 → MS3 07-14 03:16
PROC: 0DB98ZX Excision of Duodenum, Via Natural or Artificial Opening Endoscopic, Diagnostic (ICD-10-PCS; principal; 2017-07-15 16:00)
PROC: 0DB68ZX Excision of Stomach, Via Natural or Artificial Opening Endoscopic, Diagnostic (ICD-10-PCS; 2017-07-15 16:00)
DX: K31.84 Gastroparesis (principal); F31.9 Bipolar disorder, unspecified; R07.89 Other chest pain; Z90.710 Acquired absence of both cervix and uterus; Z90.79 Acquired absence of other genital organ(s); Z90.722 Acquired absence of ovaries, bilateral; Z76.5 Malingerer [conscious simulation]; M54.5 Low back pain; K29.70 Gastritis, unspecified, without bleeding; G89.29 Other chronic pain; Z87.891 Personal history of nicotine dependence; E66.01 Morbid (severe) obesity due to excess calories; Z68.38 Body mass index [BMI] 38.0-38.9, adult
CPT/HCPCS: 36415; 71045; 78264; 80048; 80053; 80061; 81001; 83036; 83605; 83735; 84100; 84484; 85025; 85610; 85730; 87040; 87086; 88305; 88312; 93005; 96374; 99285-25